=== PATIENT | male | born 1980 | race Caucasian/White ===

== ENCOUNTER 2019-01-13 10:30 | Emergency (ER) | payer BC, OTHER ==
[2019-01-13] MEDS ORDERED: NORMAL SALINE 1000 ML 1,000 ML IV ONE (11:07)
[2019-01-13] MEDS ORDERED: ONDANSETRON HCL INJ/PF 4 MG/2 ML SDV IV ONE (11:09)
--- NOTE | 2019-01-13 11:09 | ER Document Report ---
ED Medical Screen (RME) - General Chief Complaint: Palpitations Stated Complaint: HEART RATE ISSUES Time Seen by Provider: 01/13/19 11:03 Primary Care Provider: AGNIESZKA LEE [Primary Care Provider] - Follow up as needed Mode of Arrival: Ambulatory Information source: Patient TRAVEL OUTSIDE OF THE [place] IN LAST 30 DAYS: No - HPI Patient complains to provider of: palpitations Notes: 01/13/19 11:07 Patient here with complaints of palpitations. The patient states that he drank water and took a pre-workout for the first time this morning. When he was at the gym, he felt like his heart was beating very fast, this caused him to get anxious which made his heart beat faster and he felt like he was going to pass out. No chest pain. He has nausea. He denies any vomiting. No numbness, tingling, weakness. States that he is never taken this in the past. Exam No distress, nontoxic-appearing. Lungs clear and equal throughout. Mild tachycardia. Plan EKG, CBC, CMP, mag, TSH, IV fluids, Zofran. An initial examination was made on the patient as part of the triage process, and it was determined a more comprehensive evaluation was necessary. Initial labs were ordered and patient was transferred to another provider in the ED who assumed care and finished evaluation and plan. Past Medical History - Social History Chew tobacco use (# tins/day): No Frequency of alcohol use: None Drug Abuse: None Renal/ Medical History: Denies: Hx Peritoneal Dialysis Doctor's Discharge - Discharge Referrals: AGNIESZKA LEE [Primary Care Provider] - Follow up as needed
[2019-01-13 12:14] LABS: ABSOLUTE LYMPHOCYTES (AUTO) 0.7 10^3/uL (0.5-4.7); ABSOLUTE MONOCYTES (AUTO) 0.6 10^3/uL (0.1-1.4); ABSOLUTE NEUT (AUTO) 9.5 10^3/uL (1.7-8.2); BASOPHILS % (AUTO) 0.4 % (0-2); EOSINOPHILS % (AUTO) 0.2 % (0-6); HEMATOCRIT 43.8 % (37.9-51.0); HEMOGLOBIN 15.6 g/dL (13.5-17.0); LYMPHOCYTES % (AUTO) 6.4 % (13-45); MEAN CORPUSCULAR HEMOGLOBIN 32.6 pg (27.0-33.4); MEAN CORPUSCULAR HGB CONC 35.7 g/dL (32.0-36.0); MEAN CORPUSCULAR VOLUME 92 fl (80-97); MONOCYTES % (AUTO) 5.5 % (3-13); PLATELET COUNT 271 10^3/uL (150-450); RED BLOOD COUNT 4.79 10^6/uL (4.35-5.55); SEGMENTED NEUTROPHILS % (AUTO) 87.5 % (42-78); TOTAL CELLS COUNTED % (AUTO) 100 %; WHITE BLOOD COUNT 10.8 10^3/uL (4.0-10.5)
[2019-01-13 12:28] LABS: URINE AMPHETAMINES SCREEN NEGATIVE; URINE BARBITURATES SCREEN NEGATIVE; URINE BENZODIAZEPINES SCREEN NEGATIVE; URINE COCAINE SCREEN NEGATIVE; URINE MARIJUANA (THC) SCREEN NEGATIVE; URINE METHADONE SCREEN NEGATIVE; URINE PHENCYCLIDINE SCREEN NEGATIVE
[2019-01-13 12:30] VITALS: BP 160/97
[2019-01-13 12:32] LABS: ALANINE AMINOTRANSFERASE 179 U/L (21-72); ALBUMIN 4.4 g/dL (3.5-5.0); ALKALINE PHOSPHATASE 73 U/L (38-126); ANION GAP 9 (5-19); ASPARTATE AMINO TRANSFERASE 214 U/L (17-59); BILIRUBIN,DIRECT 0.2 mg/dL (0.0-0.4); BILIRUBIN,TOTAL 0.6 mg/dL (0.2-1.3); BLOOD UREA NITROGEN 11 mg/dL (7-20); CALCIUM 10.4 mg/dL (8.4-10.2); CARBON DIOXIDE 27 mmol/L (22-30); CHLORIDE 98 mmol/L (98-107); GLUCOSE 130 mg/dL (75-110); POTASSIUM 4.4 mmol/L (3.6-5.0); SODIUM 133.7 mmol/L (137-145); TOTAL PROTEIN 7.8 g/dL (6.3-8.2)
[2019-01-13] MEDS ORDERED: LORAZEPAM INJ 2 MG/1 ML VIAL IV ONE ×2 (12:34→12:37)
--- NOTE | 2019-01-13 12:39 | ER Document Report ---
ED General - General Chief Complaint: Palpitations Stated Complaint: HEART RATE ISSUES Time Seen by Provider: 01/13/19 11:03 Primary Care Provider: AGNIESZKA LEE [NO LOCAL MD] - Follow up as needed Mode of Arrival: Ambulatory TRAVEL OUTSIDE OF THE [place] IN LAST 30 DAYS: No - HPI Notes: Patient is a 38-year-old male with no significant past medical history presents emergency department complaining of palpitations and feeling anxious 15 minutes after taking a pre-workout supplement this morning. Patient states that he is going to the gym to work out when his symptoms began. Patient states that his symptoms just resolved about 45 minutes ago and he is feeling much better. He did have associated nausea and decreased p.o. intake at that time, but has been able to eat crackers since then. Denies any prolonged immobilization, distance travel, recent surgery/trauma, personal cancer history, hormone use, smoking, or previous DVT/PE. Denies any headache, fever, head injury, neck pain, URI, sore throat, chest pain, syncope, cough, shortness of breath, wheeze, dyspnea, abdominal pain, nausea/vomiting/diarrhea, urinary retention, dysuria, hematuria, loss of control of bowel or bladder, numbness/tingling, saddle anesthesia, muscle paralysis/weakness, or rash. - Related Data Allergies/Adverse Reactions: No Known Allergies Allergy (Verified 01/13/19 12:28) Past Medical History - General Information source: Patient - Social History Smoking Status: Never Smoker Chew tobacco use (# tins/day): No Frequency of alcohol use: None Drug Abuse: None Family History: Reviewed & Not Pertinent Patient has suicidal ideation: No Patient has homicidal ideation: No Renal/ Medical History: Denies: Hx Peritoneal Dialysis Review of Systems - Review of Systems -: Yes All other systems reviewed and negative Physical Exam - Vital signs Vitals: Temp Pulse Resp BP Pulse Ox 97.6 F 116 H 16 169/95 H 95 01/13/19 10:41 01/13/19 10:41 01/13/19 10:41 01/13/19 10:41 01/13/19 10:41 - Notes Notes: PHYSICAL EXAMINATION: GENERAL: Well-appearing, well-nourished and in no acute distress. HEAD: Atraumatic, normocephalic. EYES: Pupils equal round and reactive to light, extraocular movements intact, sclera anicteric, conjunctiva are normal. ENT: Nares patent and without discharge. oropharynx clear without exudates. No tonsilar hypertrophy or erythema. Moist mucous membranes. NECK: Normal range of motion, supple without lymphadenopathy LUNGS: Breath sounds clear to auscultation bilaterally and equal. No wheezes rales or rhonchi. HEART: Regular rate and rhythm without murmurs, rubs, gallops. ABDOMEN: Soft, nontender, nondistended abdomen. No guarding, no rebound. No masses appreciated. Normal bowel sounds present. No CVA tenderness bilaterally. Musculoskeletal: FROM to passive/active. Strength 5+/5. Salvatore neg. No asymmetry to LE's. Extremities: No cyanosis, clubbing, or edema b/l. Peripheral pulses 2+. Ca pillary refill less than 3 seconds. NEUROLOGICAL: Normal speech, normal gait. PSYCH: Normal mood, normal affect. SKIN: Warm, Dry, normal turgor, no rashes or lesions noted. Course - Re-evaluation Re-evalutation: 01/13/19 13:[address] Cervantes who is in agreement with dispo/plan: Patient is an afebrile, well-hydrated 38 year-old male who presents to the ED with resolved palpitations after taking pre-workout this morning. Vitals are acceptable without any significant tachycardia, tachypnea, or hypoxia. PE is otherwise unremarkable. Patient is nontoxic-appearing and is tolerating p.o. without any difficulties. Pt is currently asymptomatic and has never had any sob, dyspnea, or cp. CBC, CMP, EKG, tsh, chest x-ray are all unremarkable for any acute pathology. Mildly low magnesium. Wells score of 0. HR on monitor just now is 96. Low DVT risk factors. Patient's presentation and symptomatology creates low suspicion for ACS, PE, pneumothorax, pericarditis, dissection, respiratory compromise, severe dehydration, sepsis, meningitis, or other systemic emergent condition at this time. Patient is aware that his condition can change from initial presentation and he needs to monitor symptoms closely and seek medical attention for any acute changes. Pt is feeling better and would like to go home. Recommend conservative measures for symptoms. Recheck with your PCM in 2-3 days. Consider consult with Cardiology. Return to the ED with any worsening/concerning symptoms otherwise as reviewed in discharge. Patient is in agreement. - Vital Signs Vital signs: Temp Pulse Resp BP Pulse Ox 97.6 F 116 H 20 160/97 H 96 01/13/19 10:41 01/13/19 10:41 01/13/19 12:28 01/13/19 12:28 01/13/19 12:28 - Laboratory Result Diagrams: 01/13/19 11:57 01/13/19 11:57 Laboratory results interpreted by me: 01/13/19 01/13/19 11:57 11:57 WBC 10.8 H Seg Neutrophils % 87.5 H Lymphocytes % 6.4 L Absolute Neutrophils 9.5 H Sodium 133.7 L Glucose 130 H Calcium 10.4 H Magnesium 1.5 L AST 214 H ALT 179 H Discharge - Discharge Clinical Impression: Palpitations Condition: Stable Disposition: HOME, SELF-CARE Instructions: Palpitations (Irregular or Rapid Heartrate) ([facility]) Additional Instructions: Maintain adequate fluid and food intake Take home medications as directed Avoid the pre-workout supplement that precipitated this event Healthy diet Monitor blood pressure daily and keep a log Monitor symptoms for any acute changes Recheck with your PCM in 2-3 days Consider a follow-up with cardiology Return to the ED with any worsening symptoms and/or development of fever, headache, chest pain, palpitations, syncope, shortness of breath, trouble breathing, abdominal pain, n/v/d, blood in stool/urine, loss of control of bowel/bladder, urinary retention, muscle weakness/paralysis, numbness/tingling, or other worsening symptoms that are concerning to you. Forms: Elevated Blood Pressure Referrals: DAVID BUITRAGO MD [ACTIVE STAFF] - Follow up as needed
--- NOTE | 2019-01-13 12:56 | RADIOLOGY REPORT (SQ) ---
EXAM DESCRIPTION: CHEST SINGLE VIEW COMPLETED DATE/TIME: 01/13/2019 12:47 pm REASON FOR STUDY: palpitations COMPARISON: None. EXAM PARAMETERS: NUMBER OF VIEWS: One view. TECHNIQUE: Single frontal radiographic view of the chest acquired. RADIATION DOSE: NA LIMITATIONS: None. FINDINGS: LUNGS AND PLEURA: No opacities, masses or pneumothorax. No pleural effusion. MEDIASTINUM AND HILAR STRUCTURES: No masses. Contour normal. HEART AND VASCULAR STRUCTURES: Heart normal in size. Normal vasculature. BONES: No acute findings. HARDWARE: None in the chest. OTHER: No other significant finding. IMPRESSION: NO ACUTE RADIOGRAPHIC FINDING IN THE CHEST. TECHNICAL DOCUMENTATION: JOB ID: [id number] [employer]- All Rights Reserved Reading location - IP/workstation name: [email or web address]
--- NOTE | 2019-01-13 15:18 | EKG REPORT ---
SEVERITY:- BORDERLINE ECG - SINUS TACHYCARDIA PROBABLE LEFT ATRIAL ABNORMALITY : Confirmed by: Parish Meyer MD 13-Jan-2019 15:18:08
== END 2019-01-13 13:28 | disposition home or self-care (01) ==
LOC: ER 10:30
DX: R00.2 Palpitations (principal); R11.0 Nausea
CPT/HCPCS: 93005; 99285; 96361; 96374; 96375; 36415; 83735; 84443; 85025; 80053; 80307; 71045; 93010; J2060; J2405; J7030

== ENCOUNTER 2019-01-14 10:48 | Emergency (ER) | payer BC, OTHER ==
[2019-01-14 10:58] VITALS: BP 160/96
--- NOTE | 2019-01-14 11:25 | ER Document Report ---
ED Medical Screen (RME) - General Chief Complaint: Palpitations Stated Complaint: RAPID HEART RATE Time Seen by Provider: 01/14/19 11:14 Mode of Arrival: Ambulatory Information source: Patient TRAVEL OUTSIDE OF THE [place] IN LAST 30 DAYS: No - HPI Patient complains to provider of: palpitations Notes: 01/14/19 11:23 Patient is here today with complaints of palpitations. The patient was seen yesterday in the emergency department for feelings of palpitations after taking a pre-workout. His work-up yesterday was unremarkable for any significant abnormalities. He is noted to have elevated LFTs, but the remainder of his labs were unremarkable. Chest x-ray was negative. TSH was normal. States that he was discharged home with instructions to follow-up with cardiology. He has not had a chance to follow-up with cardiology as he was just discharged yesterday. Today while at work, he was discussing all this with some of his coworkers and states that he started to feel like his heart was beating fast again. He then felt somewhat weak. He started having some tingling. States that he feels better now other than just generalized weakness. No prior history of panic attacks. Patient denies any recent long trips or surgeries, leg pain or leg swelling, cancer, history of DVT or PE. No other specific complaints at this time. Exam Nontoxic, no distress. Heart sounds normal. Lungs clear and equal throughout. Plan EKG, CBC, CMP, troponin An initial examination was made on the patient as part of the triage process, and it was determined a more comprehensive evaluation was necessary. Initial labs were ordered and patient was transferred to another provider in the ED who assumed care and finished evaluation and plan. - Related Data Allergies/Adverse Reactions: No Known Allergies Allergy (Verified 01/13/19 12:28) Past Medical History Renal/ Medical History: Denies: Hx Peritoneal Dialysis Past Surgical History: Reports: Hx Orthopedic Surgery Physical Exam - Vital signs Vitals: Temp Pulse Resp BP Pulse Ox 98.1 F 81 18 160/96 H 97 01/14/19 10:57 01/14/19 10:57 01/14/19 10:57 01/14/19 10:57 01/14/19 10:57 Course - Vital Signs Vital signs: Temp Pulse Resp BP Pulse Ox 98.1 F 81 18 160/96 H 97 01/14/19 10:57 01/14/19 10:57 01/14/19 10:57 01/14/19 10:57 01/14/19 10:57
[2019-01-14 12:01] LABS: ABSOLUTE EOSINOPHILS # (AUTO) 0.1 10^3/uL (0.0-0.6); ABSOLUTE LYMPHOCYTES (AUTO) 0.9 10^3/uL (0.5-4.7); ABSOLUTE MONOCYTES (AUTO) 0.5 10^3/uL (0.1-1.4); ABSOLUTE NEUT (AUTO) 5.7 10^3/uL (1.7-8.2); BASOPHILS % (AUTO) 0.5 % (0-2); EOSINOPHILS % (AUTO) 0.8 % (0-6); HEMATOCRIT 45.2 % (37.9-51.0); HEMOGLOBIN 15.9 g/dL (13.5-17.0); LYMPHOCYTES % (AUTO) 12.1 % (13-45); MEAN CORPUSCULAR HEMOGLOBIN 32.5 pg (27.0-33.4); MEAN CORPUSCULAR HGB CONC 35.2 g/dL (32.0-36.0); MEAN CORPUSCULAR VOLUME 92 fl (80-97); MONOCYTES % (AUTO) 6.4 % (3-13); PLATELET COUNT 284 10^3/uL (150-450); RED CELL DISTRIBUTION WIDTH 13.1 % (11.5-14.0); SEGMENTED NEUTROPHILS % (AUTO) 80.2 % (42-78); TOTAL CELLS COUNTED % (AUTO) 100 %
--- NOTE | 2019-01-14 12:13 | EKG REPORT ---
SEVERITY:- NORMAL ECG - SINUS RHYTHM : Confirmed by: Parish Meyer MD 14-Jan-2019 12:13:02
[2019-01-14 12:26] LABS: ALANINE AMINOTRANSFERASE 149 U/L (21-72); ALBUMIN 4.6 g/dL (3.5-5.0); ALKALINE PHOSPHATASE 68 U/L (38-126); ANION GAP 10 (5-19); ASPARTATE AMINO TRANSFERASE 115 U/L (17-59); BILIRUBIN,DIRECT 0.3 mg/dL (0.0-0.4); BILIRUBIN,TOTAL 0.8 mg/dL (0.2-1.3); BLOOD UREA NITROGEN 11 mg/dL (7-20); CALCIUM 10.5 mg/dL (8.4-10.2); CARBON DIOXIDE 31 mmol/L (22-30); CHLORIDE 99 mmol/L (98-107); GLUCOSE 118 mg/dL (75-110); POTASSIUM 4.6 mmol/L (3.6-5.0); SODIUM 139.7 mmol/L (137-145); TOTAL PROTEIN 8.1 g/dL (6.3-8.2)
--- NOTE | 2019-01-14 13:40 | ER Document Report ---
ED General - General Chief Complaint: Palpitations Stated Complaint: RAPID HEART RATE Time Seen by Provider: 01/14/19 11:14 Mode of Arrival: Ambulatory TRAVEL OUTSIDE OF THE [place] IN LAST 30 DAYS: No - HPI Notes: Patient is a 38-year-old male who presents to the emergency department for evaluation. He was actually seen yesterday for similar symptoms. He states today he developed palpitations, the sensation that his heart was racing. Had been seen yesterday, it was attributed to a potential workout supplement. He states he did not take that again today. He was actually at work, discussing his elevated blood pressure and heart rate findings. He states he was getting advice from several people. He states he "looked around, and there were a lot of people there, I had to get out of there." He states he left the area and developed dizziness, the sensation that his heart was racing. He never had any chest pain. He is never had anything similar in the past. He does admit that he has had some increased stress, some issues with his 14-year-old son. - Related Data Allergies/Adverse Reactions: No Known Allergies Allergy (Verified 01/13/19 12:28) Past Medical History - General Information source: Patient - Social History Smoking Status: Former Smoker Frequency of alcohol use: Heavy - Drinks approximately 6 beers daily Family History: Reviewed & Not Pertinent Patient has suicidal ideation: No Patient has homicidal ideation: No Renal/ Medical History: Denies: Hx Peritoneal Dialysis Past Surgical History: Reports: Hx Orthopedic Surgery Review of Systems - Review of Systems Constitutional: No symptoms reported EENT: No symptoms reported Cardiovascular: See HPI Respiratory: No symptoms reported Gastrointestinal: No symptoms reported Genitourinary: No symptoms reported Musculoskeletal: No symptoms reported Skin: No symptoms reported Neurological/Psychological: See HPI Physical Exam - Vital signs Vitals: Temp Pulse Resp BP Pulse Ox 98.1 F 81 18 160/96 H 97 01/14/19 10:57 01/14/19 10:57 01/14/19 10:57 01/14/19 10:57 01/14/19 10:57 - Notes Notes: Vital signs reviewed, please refer to chart. Patient is normocephalic, atraumatic. Pupils equal round, reactive to light. Neck is supple without meningismus. Heart is regular rate and rhythm. Lungs are clear to auscultation bilaterally. Abdomen is soft, nontender, normoactive bowel sounds throughout. Extremities without cyanosis, clubbing, edema. Peripheral pulses are equal. Skin is warm and dry. Patient is awake, alert, oriented x3. Cranial nerves II through XII are grossly intact without focal neurological deficits. Strength is plus 5 out of 5 bilateral upper and lower extremities. Sensation is intact, reflexes symmetrical, gait within normal limits. Patient is clean, cooperative with examiner, makes good eye contact. Course - Re-evaluation Re-evalutation: 01/14/19 13:37 Patient presents to the emergency department for evaluation of palpitations and dizziness. He was placed on a monitor, labs ordered and drawn through triage. I did add a TSH. During the course of his stay, the patient's heart rate remai angel primarily between 60 and 90. His blood pressure was moderately elevated. Laboratory investigations were remarkable only for elevated AST and ALT. This was explained to the patient as well as his . I did advise that he cut down alcohol consumption, if not quit. He voiced understanding to this. Certainly there is a large differential for palpitations and dizziness. I expanded the patient he needs to establish care with a primary care physician. I will refer him to our on-call physician, patient's states she already made him an appointment with someone else as well. They may want to consider referral on to cardiology for Holter or event monitor if the symptoms persist. Otherwise, we will discharge the patient. He is advised to keep track of his blood pressure, follow-up with primary care as soon as possible. He is to return to the emergency department with worsening or new concerning symptoms of any sort. - Vital Signs Vital signs: Temp Pulse Resp BP Pulse Ox 98.1 F 81 18 160/96 H 97 01/14/19 10:57 01/14/19 10:57 01/14/19 10:57 01/14/19 10:57 01/14/19 10:57 - Laboratory Result Diagrams: 01/14/19 11:46 01/14/19 11:46 Laboratory results interpreted by me: 01/14/19 01/14/19 11:46 11:46 Seg Neutrophils % 80.2 H Lymphocytes % 12.1 L Carbon Dioxide 31 H Glucose 118 H Calcium 10.5 H AST 115 H ALT 149 H - EKG Interpretation by Me Additional EKG results interpreted by me: 01/14/19 13:44 Sinus mechanism with a rate of 91 bpm. Normal axis and intervals, no acute ST changes concerning for ischemia or infarction. Discharge - Discharge Clinical Impression: Palpitations, Dizziness, Elevated LFTs Condition: Stable Disposition: HOME, SELF-CARE Instructions: Palpitations (Irregular or Rapid Heartrate) ([facility]) Additional Instructions: Rest and stay well-hydrated. Follow-up with primary care, either with whom you already have an appointment, or our on-call physician listed below, in 1-2 weeks. it is recommended that you decrease your consumption of alcohol. Your liver enzymes were elevated. Your AST was 115, normal range being 17-60. Your ALT was 149, normal range being 21-72. If you develop worsening or new concerning symptoms of any sort, return immediately to the emergency department for reevaluation. Forms: Elevated Blood Pressure
== END 2019-01-14 14:23 | disposition home or self-care (01) ==
LOC: ER 10:48
DX: R00.2 Palpitations (principal); R42 Dizziness and giddiness; R74.0 Nonspecific elevation of levels of transaminase and lactic acid dehydrogenase [LDH]; Z87.891 Personal history of nicotine dependence
CPT/HCPCS: 36415; 80053; 84443; 84484; 85025; 93005; 93010; 99285